=== PATIENT | female | born 1975 | race African-American/Black ===

== ENCOUNTER 2022-05-07 07:10 | Emergency (ER) | payer OTHER ==
[~2022-05-07] VITALS: Ht 165.1 cm; Wt 73.0 kg
[2022-05-07] MEDS ORDERED: ONDANSETRON HCL 4MG/2ML INJ IV STA (08:24)
[2022-05-07] MEDS ORDERED: KETOROLAC 30MG/ML VIAL IV STA (08:24)
[2022-05-07] MEDS ORDERED: SODIUM CHLORIDE 0.9% 1,000 ML IV ONE (08:30)
[2022-05-07 08:40] VITALS: BP 130/100
[2022-05-07] MEDS ORDERED: ONDANSETRON 4MG ODT PO ONE (08:45)
[2022-05-07] MEDS ORDERED: KETOROLAC 60MG/2ML VIAL IM ONE (08:45)
[2022-05-07 10:30] LABS: CLARITY URINE CLEAR (CLEAR); COLOR URINE YELLOW (YELLOW); KETONES URINE NEGATIVE (NEGATIVE); LEUKOCYTE ESTERASE URINE 1+ (NEGATIVE); NITRITE URINE NEGATIVE (NEGATIVE); OCCULT BLOOD URINE NEGATIVE (NEGATIVE); PROTEIN URINE TRACE (NEGATIVE); SPECIFIC GRAVITY URINE 1.022 (1.005-1.030); UROBILINOGEN URINE 0.2 E.U./dL (0.2-1.0)
[2022-05-07 11:20] LABS: BASOPHILS % 0.2 % (0.0-2.0); HEMATOCRIT. 34.4 % (36.0-48.0); HEMOGLOBIN. 10.5 g/dL (12.0-16.0); LYMPHOCYTES % 11.2 % (20.0-50.0); MEAN CORPUSCULAR HEMOGLOBIN 27.9 pg (28.0-32.0); MEAN CORPUSCULAR VOLUME 91.3 fL (81.0-99.0); MEAN PLATELET VOLUME 7.8 fl (7.4-10.4); MONOCYTES % 6.7 % (2.0-8.0); NEUTROPHILS % 81.9 % (40.0-76.0); PLATELET 304 x1000/uL (130-400); RED BLOOD CELL COUNT 3.77 mill/uL (4.2-5.4); RED CELL DISTRIBUTION WIDTH 15.3 % (11.6-14.6)
[2022-05-07 11:22] LABS: CHLORIDE 108 mEq/L (98-107)
[2022-05-07 11:34] LABS: HCG SCREEN NEGATIVE
[2022-05-07] MEDS ORDERED: ACETAMINOPHEN 325MG TABLET PO STA (12:01)
[2022-05-07] MEDS ORDERED: MAGNESIUM/ALUMINUM HYDROXIDE/SIMETHICONE 30ML UDC PO STA (12:01)
[2022-05-07] MEDS ORDERED: OMEP40CA20 MT (12:04)
[2022-05-07] MEDS ORDERED: CEPH500C2 MT (12:04)
[2022-05-07] MEDS ORDERED: ONDA4TAB50 MT (12:04)
== END 2022-05-07 13:43 | disposition home or self-care (01) ==
LOC: ER 07:10
DX: R10.33 Periumbilical pain (principal); K50.90 Crohn's disease, unspecified, without complications; K44.9 Diaphragmatic hernia without obstruction or gangrene; D35.02 Benign neoplasm of left adrenal gland; D35.01 Benign neoplasm of right adrenal gland; R03.0 Elevated blood-pressure reading, without diagnosis of hypertension
CPT/HCPCS: 36415; 74176; 80053; 81003; 83690; 84703; 85025; 96372; 99284; J1885; J7030; Q0162